=== PATIENT | male | born 1985 | race Two or more races ===

== ENCOUNTER → 2021-06-28 | Outpatient (CLI) | payer OTHER | END | disposition home or self-care (01) | LOC: PPH VACUNA | DX: Z23 Encounter for immunization (principal) ==

== ENCOUNTER 2022-01-24 07:50 | Emergency (ER) | payer OTHER ==
[~2022-01-24] VITALS: Ht 177.8 cm; Wt 90.7 kg
[2022-01-24] MEDS ORDERED: COZAAR100 MG PO (08:04)
[2022-01-24] MEDS ORDERED: LIPITOR20 MG PO (08:05)
== END 2022-01-24 11:28 | disposition home or self-care (01) ==
LOC: ER 07:50
DX: R07.89 Other chest pain (principal); G44.209 Tension-type headache, unspecified, not intractable; Z20.822 Contact with and (suspected) exposure to COVID-19; I10 Essential (primary) hypertension

== ENCOUNTER 2022-02-19 08:00 | Outpatient (CLI) | payer OTHER ==
[~2022-02-19 08:00] MED LIST: COZAAR100 MG PO; LIPITOR20 MG PO
== END 2022-02-19 08:05 | disposition home or self-care (01) ==
LOC: PPH VACUNA 08:00
PROVIDERS: ATTEND Emergency Medicine Pediatric Emergency Medicine
DX: Z23 Encounter for immunization (principal)

== ENCOUNTER 2022-07-23 06:57 | Emergency (ER) | payer OTHER ==
[~2022-07-23] VITALS: Ht 180.3 cm; Wt 90.7 kg
[2022-07-23] MEDS ORDERED: PEPCID AC20 MG PO (13:39)
[2022-07-23] MEDS ORDERED: INTESTINEX680 M1 PO (13:39)
== END 2022-07-23 13:54 ==
LOC: ER 06:57
DX: K29.70 Gastritis, unspecified, without bleeding (principal); Z20.822 Contact with and (suspected) exposure to COVID-19

== ENCOUNTER 2022-09-19 06:06 | Emergency (ER) | payer OTHER ==
[~2022-09-19] VITALS: Ht 180.3 cm; Wt 90.7 kg
[~2022-09-19 06:06] MED LIST changes: +INTESTINEX680 M1 PO; +PEPCID AC20 MG PO
== END 2022-09-19 11:01 | disposition home or self-care (01) ==
LOC: ER 06:06
DX: R51.9 Headache, unspecified (principal); H53.149 Visual discomfort, unspecified; R11.0 Nausea